=== PATIENT | female | born 1940 | race American Indian/Alaskan Native ===

== ENCOUNTER 2021-11-23 11:05 | Emergency (ER) | payer MEDICARE ==
[2021-11-23] MEDS ORDERED: SODIUM CHLORIDE 0.9% IRR 500 ML BOTTLE IR ONE (11:44)
[2021-11-23] MEDS ORDERED: TETANUS,DIPH,PERTUSS(ACELL) VACCINE 0.5 ML SYRINGE IM ONE (11:44)
[2021-11-23] MEDS ORDERED: LIDOCAINE 1.5% /EPINEPHRINE 1:200,000 AMP (5 ML) INFILTRATI NR (11:44)
--- NOTE | 2021-11-23 11:54 | Emergency Department Report ---
ED General Adult HPI - General Chief complaint: Fall Stated complaint: FALL/HEAD INJURY Time Seen by Provider: 11/23/21 11:27 Source: patient, EMS ( EMS documentation not available at time of chart dictation ), RN notes reviewed Mode of arrival: Stretcher Limitations: Other (Patient is demented and a poor historian) - History of Present Illness Initial comments: The patient was evaluated in the emergency department for symptoms described in the history of present illness. He/she was evaluated in the context of the global COVID-19 pandemic, which necessitated consideration that the patient might be at risk for infection with the virus that causes COVID-19. Institutional protocols and algorithms that pertain to the evaluation of patients at risk for COVID-19 are in a state of rapid change based on information released by regulatory bodies including the CDC and federal and state organizations. These policies and algorithms were followed during the patient's care in the emergency department. Please note that these policies, procedures and recommendations changed on a rapid basis. Primary care doctor: Dr. True Lopez This patient is an 81-year-old female with a history of hypertension and reported dementia, who was brought to the hospital by emergency medical services with an EMS articulated verbal complaint of closed head injury, secondary to mechanical fall. The patient only complains of right scalp pain. She denies additional injuries and complaints. She specifically denies chest pain, abdominal pain, shortness of breath, vomiting, urinary symptoms. She does not recall how she fell. As per verbal report from nursing team, who received verbal report from EMS, EMS reported to our nursing staff that this was a witnessed mechanical fall. Patient not accompanied by family members or friends at this time for collateral information or additional history -: This morning Location: head - Related Data Allergies Allergy/AdvReac Type Severity Reaction Status Date / Time No Known Allergies Allergy Verified 11/23/21 13:01 ED Review of Systems ROS: Stated complaint: FALL/HEAD INJURY Other details as noted in HPI Constitutional: denies: fever Eyes: denies: eye discharge ENT: denies: epistaxis Respiratory: denies: cough Cardiovascular: denies: chest pain Gastrointestinal: denies: abdominal pain Skin: as per HPI Neurological: other (Patient is demented and a poor historian) ED Past Medical Hx - Past Medical History Previous Medical History?: Yes ED Physical Exam - General Limitations: Other (Dementia) General appearance: alert, in no apparent distress - Head Head exam: Present: normocephalic, other (There is a 1.5 cm right linear scalp laceration) - Eye Eye exam: Present: normal appearance, EOMI. Absent: nystagmus - ENT ENT exam: Present: normal exam, normal orophraynx, mucous membranes moist, normal external ear exam - Neck Neck exam: Present: normal inspection, full ROM. Absent: tenderness, meningismus - Respiratory Respiratory exam: Present: normal lung sounds bilaterally. Absent: respiratory distress, wheezes, rales, rhonchi, stridor, decreased breath sounds - Cardiovascular Cardiovascular Exam: Present: regular rate, normal rhythm, normal heart sounds. Absent: bradycardia, tachycardia, irregular rhythm, systolic murmur, diastolic murmur, rubs, gallop - GI/Abdominal GI/Abdominal exam: Present: soft. Absent: distended, tenderness, guarding, rebound, rigid, pulsatile mass - Extremities Exam Extremities exam: Present: normal inspection, full ROM, other (2+ pulses noted in the bilateral upper and lower extremities. There is no palpable cord. negative Homans sign. Muscular compartments are soft. The pelvis is stable.). Absent: pedal edema, calf tenderness - Back Exam Back exam: Present: normal inspection. Absent: tenderness, CVA tenderness (R), CVA tenderness (L), paraspinal tenderness, vertebral tenderness - Neurological Exam Neurological exam: Present: alert (Patient is alert and oriented to name, and follows commands), other (There is no facial droop. The tongue is midline. EOMI. 5 out of 5 strength in 4 extremities) - Psychiatric Psychiatric exam: Present: anxious - Skin Skin exam: Present: warm, dry, ecchymosis, other (There is a right-sided scalp ecchymosis and linear laceration) ED Course Vital Signs 11/23/21 11/23/21 11/23/21 11:21 11:25 11:30 Temperature 98.4 F Pulse Rate 88 96 H 97 H Respiratory 11 L 18 18 Rate Blood Pressure Blood Pressure 100/66 [Left] O2 Sat by Pulse 99 Oximetry 11/23/21 11/23/21 11/23/21 11:46 12:02 12:16 Temperature Pulse Rate 104 H 87 Respiratory 20 11 L Rate Blood Pressure 119/82 119/82 Blood Pressure [Left] O2 Sat by Pulse 96 98 Oximetry 11/23/21 11/23/21 12:31 12:45 Temperature Pulse Rate 79 79 Respiratory 8 L 13 Rate Blood Pressure 103/66 Blood Pressure [Left] O2 Sat by Pulse 98 Oximetry - Reevaluation(s) Reevaluation #1: 11/23/21 12:44 Differential diagnosis, including but not limited to: Scalp abrasion, scalp laceration, closed head injury Assessment and plan: 81-year-old female with closed head injury, and superficial scalp abrasion and laceration. She is otherwise afebrile, with reassuring vital signs, moving 4 extremities, and denies acute complaints. This is reportedly a witnessed fall. Has unremarkable EKG monitoring on our cardiac rehab nurse. CT scan brain and cervical spine negative for acute findings. Tetanus vaccination administered. Scalp wound is repaired with kym. Patient observed in this department without clinical decompensation. She is suitable for discharge back to her alf, kym may be taken out at the alf 11/23/21 14:21 CT scan brain and C-spine negative for acute findings. Laceration is repaired with interrupted kym. Patient resting comfortably in stretcher and in no acute distress. Follow-up with outpatient primary care for close head injury, and staple removal. - Laceration /Wound Repair Left Posterior Head Wound Location: head Wound Length (cm): 3 Wound's Depth, Shape: into muscle, linear Wound Explored: clean Irrigated w/ Saline (ccs): 500 Betadine Prep?: No Anesthesia: Lidocaine w/ Epi Volume Anesthetic (ccs): 6 Progress: Patient's hair guillaume are cut from the laceration. There is a 3 cm linear laceration on the right occipital scalp. The wound is irrigated with sterile saline and adequate pressure. Using a 26- gauge needle, 1.5% lidocaine with epinephrine is infiltrated into the laceration on both sides. 3 interrupted kym are placed, with good cosmetic approximation. The patient tolerated the procedure well. There are no obvious complications ED Medical Decision Making - Lab Data Vital Signs 11/23/21 11/23/21 11:25 12:02 Temperature 98.4 F Pulse Rate 96 H Respiratory 18 Rate Blood Pressure 100/66 [Left] O2 Sat by Pulse 99 98 Oximetry - Radiology Data Radiology results: pending, report reviewed, image reviewed CT head/brain wo con, CT cervical spine wo con INDICATION / CLINICAL INFORMATION: 81 years Female; fall w closed head injuryu. TECHNIQUE: Routine CT head without contrast. All CT scans at this location are performed using CT dose reduction for ALARA by means of automated exposure control. COMPARISON: None. FINDINGS: BRAIN / INTRACRANIAL CONTENTS: No acute hemorrhage, mass effect, midline shift, hydrocephalus, or acute, large territorial infarct. Moderate diffuse cerebral and cerebellar atrophy. There are moderate areas of decreased attenuation in the white matter of the cerebral hemispheres. These are nonspecific findings and may be related to microangiopathy (hypertension, diabetes, atherosclerosis), given the patient's age. It might be difficult to evaluate for small areas of ischemia without diffusion imaging by MRI. CRANIOCERVICAL JUNCTION: No significant abnormality. ORBITS: No significant abnormality of visualized orbits. SINUSES / MASTOIDS: Visualized paranasal sinuses and mastoid air cells are essentially clear. ADDITIONAL FINDINGS: Atherosclerotic disease is seen in the anterior and posterior circulation. IMPRESSION: 1. Advanced volume loss and chronic white matter changes. 2. No acute intracranial process. CT CERVICAL SPINE WITHOUT CONTRAST INDICATION: fall w closed head injuryu. TECHNIQUE: Axial imaging performed through the cervical spine without the use of contrast. Sagittal and coronal reconstructed images were also reviewed. All CT scans at this location are performed using CT dose reduction for ALARA by means of automated exposure control. COMPARISON: None FINDINGS: Alignment: Spinal alignment is normal.. There is mild reversal of the normal cervical lordosis. Bones: No acute osseous abnormality or bone lesion is identified. Moderate multilevel discogenic DJD is present. Soft tissues: No acute or significant incidental soft tissue abnormality. IMPRESSION: No acute abnormality. Moderate multilevel cervical spondylosis. Signer Name: Christos oSsa Jr, MD Signed: 11/23/2021 12:02 PM Workstation Name: [id number] Critical care attestation.: If time is entered above; I have spent that time in minutes in the direct care of this critically ill patient, excluding procedure time. ED Disposition Clinical Impression: DJD (degenerative joint disease) of cervical spine Closed head injury Qualifiers: Encounter type: initial encounter Qualified Code(s): S09.90XA - Unspecified injury of head, initial encounter Fall Qualifiers: Encounter type: initial encounter Qualified Code(s): W19.XXXA - Unspecified fall, initial encounter Scalp laceration Qualifiers: Encounter type: initial encounter Qualified Code(s): S01.01XA - Laceration without foreign body of scalp, initial encounter Disposition: 03 [facility] Is pt being admited?: No Does the pt Need Aspirin: No Condition: Good Additional Instructions: We recommend the patient's facility initiate fall precautions. Recommend that kym be taken out in the next 7 to 10 days. Avoid sedating medications. Follow-up with your primary care doctor within the next week. CT scan brain and cervical spine showed no acute traumatic findings. Please have your private physician contact our medical records department, to obtain copies of medical records, as well as radiology studies. Please return to the emergency room right away with new pain, worsened pain, migration of pain, projectile vomiting, change in mental status, confusion, inability tolerate liquid feeds, new, worsened or different symptoms not present on the initial emergency room evaluation Referrals: [facility] [Provider Group] - 7-10 days
--- NOTE | 2021-11-23 13:06 | Cat Scan Report ---
CT head/brain wo con, CT cervical spine wo con INDICATION / CLINICAL INFORMATION: 81 years Female; fall w closed head injuryu. TECHNIQUE: Routine CT head without contrast. All CT scans at this location are performed using CT dos e reduction for ALARA by means of automated exposure control. COMPARISON: None. FINDINGS: BRAIN / INTRACRANIAL CONTENTS: No acute hemorrhage, mass effect, midline shift, hydrocephalus, or acu te, large territorial infarct. Moderate diffuse cerebral and cerebellar atrophy. There are moderate areas of decreased attenuation in the white matter of the cerebral hemispheres. Th joo are nonspecific findings and may be related to microangiopathy (hypertension, diabetes, atheroscl erosis), given the patient's age. It might be difficult to evaluate for small areas of ischemia witho ut diffusion imaging by MRI. CRANIOCERVICAL JUNCTION: No significant abnormality. ORBITS: No significant abnormality of visualized orbits. SINUSES / MASTOIDS: Visualized paranasal sinuses and mastoid air cells are essentially clear. ADDITIONAL FINDINGS: Atherosclerotic disease is seen in the anterior and posterior circulation. IMPRESSION: 1. Advanced volume loss and chronic white matter changes. 2. No acute intracranial process. CT CERVICAL SPINE WITHOUT CONTRAST INDICATION: fall w closed head injuryu. TECHNIQUE: Axial imaging performed through the cervical spine without the use of contrast. Sagittal and coronal reconstructed images were also reviewed. All CT scans at this location are performed us ing CT dose reduction for ALARA by means of automated exposure control. COMPARISON: None FINDINGS: Alignment: Spinal alignment is normal.. There is mild reversal of the normal cervical lordosis. Bones: No acute osseous abnormality or bone lesion is identified. Moderate multilevel discogenic DJ D is present. Soft tissues: No acute or significant incidental soft tissue abnormality. IMPRESSION: No acute abnormality. Moderate multilevel cervical spondylosis. Signer Name: Christos Sosa Jr, MD Signed: 11/23/2021 1:02 PM Workstation Name: [id number]
[2021-11-23 21:59] VITALS: BP 130/70
== END 2021-11-23 18:52 ==
LOC: ED 11:05
DX: S01.01XA Laceration without foreign body of scalp, initial encounter (principal); M50.30 Other cervical disc degeneration, unspecified cervical region; Z79.899 Other long term (current) drug therapy; W18.39XA Other fall on same level, initial encounter; Y93.89 Activity, other specified; Y92.89 Other specified places as the place of occurrence of the external cause; Y99.8 Other external cause status
CPT/HCPCS: 12002; 70450; 72125; 90471; 90715; 99283; J8610